=== PATIENT | female | born 1955 | race Caucasian/White ===

== ENCOUNTER 2019-12-06 13:31 | Inpatient (IN) | payer MEDICARE, OTHER ==
[~2019-12-06] VITALS: Ht 165.1 cm; Wt 88.6 kg
[~2019-12-06 13:31] MED LIST: COMBIVENT14.7 GM INH; LOSARTAN POTAS100 MG PO; NORCO 10-325 T1 EACH PO; VALIUM5 MG
[2019-12-06] MEDS ORDERED: METHYLPREDNISOLONE SOD SUCC 125 MG/2ML VIAL IV STA (14:14)
[2019-12-06] MEDS ORDERED: SODIUM CHLORIDE 0.9% 1000ML 1,000 ML IV STA (14:14)
[2019-12-06] MEDS ORDERED: CEFTRIAXONE SOD 1 GM/NS 50 ML 50 ML IV ONE (14:15)
[2019-12-06] MEDS ORDERED: AZITHROMYCIN 500MG/NS 250 ML 250 ML IV ONE (14:15)
[2019-12-06] MEDS ORDERED: ALBUTEROL SULFATE HFA 8GM INHALATION AEROSOL INH PRN (14:15)
--- NOTE | 2019-12-06 14:35 | NUR ---
NOTIFIED RESP TECH OF [facility].
[2019-12-06 15:01] LABS: BASOPHILS % 0.4 % (0.0-1.0); EOSINOPHILS # (AUTO) 0.1 (0.0-0.4); EOSINOPHILS % 0.7 % (0.0-6.0); HEMATOCRIT 39.1 % (34.2-44.1); HEMOGLOBIN 10.6 g/dL (12.0-16.0); LYMPHOCYTES # (AUTO) 0.9 (1.0-3.2); MEAN CORPUSCULAR HGB CONC 27.1 g/dL (31-35); MEAN CORPUSCULAR VOLUME 103.2 fL (81-99); MONOCYTES # (AUTO) 0.4 (0.2-0.8); MONOCYTES % 4.7 % (4.4-11.3); NEUTROPHILS # (AUTO) 6.8 (2.1-6.9); NEUTROPHILS % 81.6 % (38.7-80.0); PLATELET COUNT 104 x10e3/uL (140-360); RED BLOOD COUNT 3.79 x10e6/uL (3.6-5.1); RED CELL DISTRIBUTION WIDTH 12.1 % (11.7-14.4)
[2019-12-06 15:10] LABS: INR 0.84
--- NOTE | 2019-12-06 15:10 | NUR ---
PATIENT TO ROOM 9
[2019-12-06 15:11] LABS: PARTIAL THROMBOPLASTIN TIME 31.9 seconds (23.8-35.5)
[2019-12-06 15:17] LABS: ALANINE AMINOTRANSFERASE 19 IU/L (0-55); ALBUMIN 3.4 g/dL (3.5-5.0); ALBUMIN/GLOBULIN RATIO 0.9 (0.8-2.0); ALKALINE PHOSPHATASE 106 IU/L (40-150); BLOOD UREA NITROGEN 16 mg/dL (7-26); BUN/CREATININE RATIO 18 (6-25); CALCIUM 9.4 mg/dL (8.4-10.2); CHLORIDE 92 mmol/L (98-107); CREATINE KINASE 53 IU/L (29-168); CREATININE, SERUM 0.88 mg/dL (0.57-1.11); EST GLOMERULAR FILTRATION RATE > 60 ML/MIN (60-); GLUCOSE 104 mg/dL (74-118); MAGNESIUM 2.1 MG/DL (1.3-2.1); SODIUM 145 mmol/L (136-145)
[2019-12-06 15:25] LABS: B-TYPE NATRIURETIC PEPTIDE2 213.6 pg/mL (0-100); CARBON DIOXIDE 46 mmol/L (22-29)
[2019-12-06] MEDS ORDERED: SUCCINYLCHOLINE CHLORIDE 20 MG/ML 10ML VIAL ONE (15:53)
[2019-12-06] MEDS ORDERED: VECURONIUM BROMIDE FOR INJ 20 MG VIAL ONE (15:53)
[2019-12-06] MEDS ORDERED: ETOMIDATE 2 MG/ML 10 ML INJ IV ONE (15:53)
--- NOTE | 2019-12-06 16:22 | NUR ---
PATIENT ENTUBATED 50% RATE 20 PEEP 5 500 TV
[2019-12-06] MEDS ORDERED: ONDANSETRON HCL INJ 2MG/ML 2ML 2 MG/ML VIAL IV PRN (16:45)
[2019-12-06] MEDS ORDERED: SUCCINYLCHOLINE 200 MG/10 ML SYR IV STA (16:47)
[2019-12-06] MEDS ORDERED: ETOMIDATE 2 MG/ML 10 ML INJ IV STA (16:47)
[2019-12-06] MEDS ORDERED: VECURONIUM BROMIDE FOR INJ 20 MG VIAL IV STA (16:47)
--- NOTE | 2019-12-06 17:06 | Emergency Department Note ---
History of Present Illnes History of Present Illness Chief Complaint: COVID PUI History of Present Illness This is a 64 year old female HERE FOR TROUBLE BREATHING, CLIENT HAS HISTORY OF COPD, CHF AND AFIB. CLIENT O2 SATS ORIGINALLY AT 80%, CURRENTLY 93% ON 5 LPM. CLIENT WORKING PRETTY HARD TO BREATHE. Historian: Patient, Family Member Arrival Mode: Car Radar Tester Required: No Onset (how long ago): day(s) (3) Location: BREATHING Quality: SOB Radiation: non-radiation Severity: severe Onset quality: gradual Timing of current episode: constant Progression: worsening Chronicity: chronic Context: recent illness Relieving factors: none Exacerbating factors: none Treatments prior to arrival: other (ALBUTEROL MDI) Past Medical/Family History Physician Review I have reviewed the patient's past medical and family history. Any updates have been documented here. Past Medical History Recent Fever: No Clinical Suspicion of Infectio: No New/Unexplained Change in Ment: No Past Medical History: Hypertension, COPD, CHF Other Medical History: SLEEP APNEA Other Surgery: LUNG SURGERY Social History Smoking Cessation: Current every day smoker Counseling Performed: Yes Alcohol Use: None Any Illegal Drug Use: No TB Exposure/Symptoms: No Physically hurt or threatened: No Other Last Tetanus: UTD Any Pre-Existing Lines (PICC,: No Is patient up to date on immun: Yes Last Flu: UTD Last Pneumovax: UTD Review of Systems Review of Systems Constitutional: fever EENTM: no symptoms Cardiovascular: no symptoms Respiratory: dyspnea, dyspnea on exertion; cough Gastrointestinal: no symptoms Genitourinary: no symptoms Musculoskeletal: no symptoms Neurological: other (DAUGHTER REPORTS RECENT CONFUSION) Psychological: no symptoms Endocrine: no symptoms Hematological/Lymphatic: no symptoms Review of other systems All other systems reviewed and negative. Physical Exam Related Data Allergies: Coded Allergies: morphine (Verified Allergy, 03/17/12) Triage Vital Signs Vital Signs Date Time Temp Pulse Resp B/P (MAP) Pulse Ox O2 Delivery O2 Flow Rate FiO2 12/06/19 14:10 98.4 74 24 138/81 90 12/06/19 16:20 3.0 Vital signs reviewed: Yes Physical Exam CONSTITUTIONAL Constitutional: obese, distressed HENT HENT: normocephalic, atraumatic, oropharynx clear/moist, nose normal HENT L/R: left ext ear normal, right ext ear normal EYES Eyes: PERRL, conjunctivae normal NECK Neck: ROM normal PULMONARY Pulmonary: respiratory distress (TACHYPNEIC, SHALLOW RESPIRATIONS), other (DECREASED BS THROUGHOUT) CARDIOVASCULAR Cardiovascular: regular rhythm, heart sounds normal, capillary refill normal, normal rate GASTROINTESTINAL Abdominal: soft, nontender, bowel sounds normal GENITOURINARY Genitourinary: exam deferred SKIN Skin: warm, dry MUSCULOSKELETAL Musculoskeletal: ROM normal NEUROLOGICAL Neurological: other (SLOW TO ANSWER QUESTIONS) PSYCHOLOGICAL Psychological: mood/affect normal, judgement normal Results Laboratory Result Diagram: 12/06/19 1433 12/06/19 1433 Laboratory Laboratory Tests Test 12/06/19 15:12 12/06/19 14:33 White Blood Count 8.27 x10e3/uL (4.8-10.8) Red Blood Count 3.79 x10e6/uL (3.6-5.1) Hemoglobin 10.6 g/dL (12.0-16.0) Hematocrit 39.1 % (34.2-44.1) Mean Corpuscular Volume 103.2 fL (81-99) Mean Corpuscular Hemoglobin 28.0 pg (28-32) Mean Corpuscular Hemoglobin Concent 27.1 g/dL (31-35) Red Cell Distribution Width 12.1 % (11.7-14.4) Platelet Count 104 x10e3/uL (140-360) Neutrophils (%) (Auto) 81.6 % (38.7-80.0) Lymphocytes (%) (Auto) 11.0 % (18.0-39.1) Monocytes (%) (Auto) 4.7 % (4.4-11.3) Eosinophils (%) (Auto) 0.7 % (0.0-6.0) Basophils (%) (Auto) 0.4 % (0.0-1.0) Neutrophils # (Auto) 6.8 (2.1-6.9) Lymphocytes # (Auto) 0.9 (1.0-3.2) Monocytes # (Auto) 0.4 (0.2-0.8) Eosinophils # (Auto) 0.1 (0.0-0.4) Basophils # (Auto) 0.0 (0.0-0.1) Absolute Immature Granulocyte (auto 0.13 x10e3/uL (0-0.1) Prothrombin Time 12.0 seconds (11.9-14.5) Prothromb Time International Ratio 0.84 Activated Partial Thromboplast Time 31.9 seconds (23.8-35.5) Sodium Level 145 mmol/L (136-145) Potassium Level 5.0 mmol/L (3.5-5.1) Chloride Level 92 mmol/L (98-107) Carbon Dioxide Level 46 mmol/L (22-29) Anion Gap 12.0 mmol/L (8-16) Blood Urea Nitrogen 16 mg/dL (7-26) Creatinine 0.88 mg/dL (0.57-1.11) Estimat Glomerular Filtration Rate > 60 ML/MIN (60-) BUN/Creatinine Ratio 18 (6-25) Glucose Level 104 mg/dL (74-118) Lactic Acid Level 0.6 mmol/L (0.5-2.0) Calcium Level 9.4 mg/dL (8.4-10.2) Magnesium Level 2.1 MG/DL (1.3-2.1) Total Bilirubin 0.5 mg/dL (0.2-1.2) Aspartate Amino Transf (AST/SGOT) 18 IU/L (5-34) Alanine Aminotransferase (ALT/SGPT) 19 IU/L (0-55) Alkaline Phosphatase 106 IU/L (40-150) Creatine Kinase 53 IU/L (29-168) Creatine Kinase MB 3.30 ng/mL (0-5.0) Troponin I 0.011 ng/mL (0-0.300) B-Type Natriuretic Peptide 213.6 pg/mL (0-100) Total Protein 7.4 g/dL (6.5-8.1) Albumin 3.4 g/dL (3.5-5.0) Globulin 4.0 g/dL (2.3-3.5) Albumin/Globulin Ratio 0.9 (0.8-2.0) Lab results reviewed: Yes Procedures 12 Lead ECG Interpretation Date: Dec 06, 2019 Time: 15:07 Prior COLORS CUSTODIAN tracings: reviewed Rhythm: sinus rhythm Rate: normal (75) Conduction: incomplete RBBB ST segments normal: Yes T wave depression: aVR, V1 T waves flattening: III, aVF, V3 Clinical Impression: non-specific ECG ABG Interpretation ABG Results: ABG 1 Interpretation: respiratory acidosis Additional comments CO2 >130, WILL INTUBATE Intubation Time out performed: Yes Sedative: Etomidate Paralytic: Succinylcholine Laryngoscope: Rosales (4) Endotracheal tube size: 7.5 ET tube uncuffed: Yes Tube secured depth (cm): 24 Tube secured location: lips Tube placement confirmation: visualize tube passing cords, equal breath sounds bilaterally, no breath sounds over epigastrium, capnometry Patient tolerated procedure: well Complications: none Critical Care Time Critical care time exclusive o: separately billable procedures Critcal care necessary due to: respiratory failure Critcal care time spent by me: discussion w consultants, discussion w primary provider, evaluation patient response to tx, order/review laboratory studies, order/review radiographic studies, pulse oximetry, re-evaluation of patient condition Assessment & Plan Reassessment Reassessment PT WITH ACUTE HYPERCARBIC RESP FAILURE - SEE INTUBATION NOTE Assessment & Plan Final Impression: (1) ACUTE RESPIRATORY FAILURE WITH HYPERCAPNIA (2) CHRONIC OBSTRUCTIVE PULMONARY DISEASE W (ACUTE) EXACERBATION (3) OTHER EMPHYSEMA Assessment & Plan ADMIT ICU - SPOKE WITH DR JAMES AND DR Aleja MCMAHON Depart Disposition: ADMITTED Last Vital Signs Date Time Temp Pulse Resp B/P (MAP) Pulse Ox O2 Delivery O2 Flow Rate FiO2 12/06/19 16:45 65 20 175/80 100 12/06/19 16:20 18.0 12/06/19 14:10 98.4 Home Meds Reported Medications Hydrocodone Bit/Acetaminophen (NORCO 10-325 TABLET) 1 Each Tablet 07/22/14 Diazepam (VALIUM) 5 Mg Tablet 07/22/14 Losartan Potassium (LOSARTAN POTASSIUM) 100 Mg Tablet, 100 MG PO DAILY, TAB 07/22/14 Albuterol/Ipratropium (Combivent) 14.7 Gm Aero, 14.7 GM INH PRN 12 Medications in the ED Methylprednisolone Sodium Succinate 125 mg ONCE STAT IV Last administered on 12/06/19at 15:56; Admin Dose 125 MG; Start 12/06/19 at 14:14; Stop 12/06/19 at 14:17; Status DC Sodium Chloride 1,000 ml @ 0 mls/hr Q0M STAT IV Last administered on 12/06/19at 15:56; Admin Dose 1,000 MLS/HR; Start 12/06/19 at 14:14; Stop 12/06/19 at 14:17; Status DC Ceftriaxone Sodium 50 ml @ 100 mls/hr ONCE ONCE IV Last administered on 12/06/19at 15:56; Admin Dose 100 MLS/HR; Start 12/06/19 at 14:15; Stop 12/06/19 at 14:44; Status DC Azithromycin 250 ml @ 200 mls/hr NOW ONCE IV Last administered on 12/06/19at 16:27; Admin Dose 200 MLS/HR; Start 12/06/19 at 14:15; Stop 12/06/19 at 15:29; Status DC Albuterol 2 PUFFS RQ4H PRN INH SHORTNESS OF BREATH; Start 12/06/19 at 14:15; Stop 01/05/20 at 14:14 Ondansetron HCl 4 mg Q4H PRN IV NAUSEA AND VOMITING; Start 12/06/19 at 16:45; Stop 01/05/20 at 16:44 Etomidate 20 mg NOW STAT IV Last administered on 12/06/19at 16:17; Admin Dose 20 MG; Start 12/06/19 at 16:47; Stop 12/06/19 at 16:55; Status DC Succinylcholine Chloride 100 mg NOW STAT IV Last administered on 12/06/19at 16:17; Admin Dose 100 MG; Start 12/06/19 at 16:47; Stop 12/06/19 at 16:55; Status DC Vecuronium Titus 10 mg NOW STAT IV Last administered on 12/06/19at 16:26; Admin Dose 10 MG; Start 12/06/19 at 16:47; Stop 12/06/19 at 16:55; Status DC JAIME GREEN MD Dec 06, 2019 17:06
[2019-12-06] MEDS ORDERED: PROPOFOL IV EMULSION 10 MG/ML 20 ML VIAL IV ONE (17:30)
[2019-12-06] MEDS ORDERED: PROPOFOL IV EMULSION 50 ML IV ONE ×3 (17:30→21:58)
--- NOTE | 2019-12-06 17:30 | NUR ---
OLIVARES CATHETER PLACED PER Bhavna PLASENCIA R.N.
--- NOTE | 2019-12-06 17:44 | Diagnostic Imaging Report ---
EXAMINATION: CHEST SINGLE (PORTABLE) INDICATION: Shortness of breath. Cough. COMPARISON: July 24, 2014. FINDINGS: TUBES and LINES: The tracheal tube with distal tip approximately 3.5 cm proximal to the russ. LUNGS: Lungs are hyperinflated fragility upper lobes. Bilateral upper lobe pleural parenchymal scarring. Mild perihilar, peribronchial thickening and perihilar streaky densities may represent early interstitial edema, however, can also be seen with viral infection versus reactive airway disease. Mild prominence of the pulmonary vasculature with redistribution. There is no evidence of pneumonia or pulmonary edema. PLEURA: Bilateral small pleural effusions, right greater than left. No pneumothorax. HEART AND MEDIASTINUM: Cardiac size is moderately enlarged. There are atherosclerotic calcifications within the aorta. BONES AND SOFT TISSUES: No acute osseous lesion. Soft tissues are unremarkable. UPPER ABDOMEN: No free air under the diaphragm. IMPRESSION: 1. Findings suggestive of pulmonary venous congestion and early interstitial edema. 2. Bilateral small pleural effusions, right greater than left. 3. ET tube in adequate position. 4. Probable COPD. Signed by: Dr. Claritza Huerta M.D. on 12/06/2019 5:41 PM
[2019-12-06] MEDS ORDERED: HYDRALAZINE HCL 20 MG/ML VIAL IV PRN (17:45)
[2019-12-06] MEDS ORDERED: FUROSEMIDE INJ 10 MG/ML 2 ML VIAL IV ONE (17:45)
[2019-12-06] MEDS: PROPOFOL IV EMULSION 10MG/ML 100 ML IV SCH ×3 (18:06→21:56)
--- NOTE | 2019-12-06 18:33 | NUR ---
FAMILY CALLED TO OBTAIN CONSENT FOR PICC LINE, LEFT MESSAGE
--- NOTE | 2019-12-06 19:09 | NUR ---
RECEVIED REPORT FROM LEONARDA BROWER; ASSUMED CARE AT THIS TIME; BEDSIDE HANDOFF COMPLETED; NOTED PATIENT IN NAD, INTUBATED WITH E/U RESP EFFORT; PT ATTACHED TO PIE MAKER MACHINE, V/S/S; PT HAS 7.5 ETT 24@LIP, NG TUBE PRESENT TO RT NARE ATTACHED TO LIWS; OLIVARES IN PLACE APPEARS PATENT, DRAINING URINE AT THIS TIME; WILL CONTINUE TO MONITOR PT.
[2019-12-06 19:27] LABS: BILIRUBIN,URINE SMALL (NEGATIVE); CLARITY,URINE SL CLOUDY (CLEAR); COLOR,URINE YELLOW (YELLOW); KETONES,URINE TRACE (NEGATIVE); LEUKOCYTE ESTERASE ,URINE NEGATIVE (NEGATIVE); NITRITE,URINE NEGATIVE (NEGATIVE); PROTEIN,URINE DIPSTICK 2+ (NEGATIVE); URINE UROBILINOGEN 0.2 mg/dL (0.2 - 1)
--- OUTSIDE RECORDS SUMMARY | 2019-12-06 19:28 | XMS REPORT | Clinical Summary ---
Author Author [facility] Organization [facility] Address Unknown Phone Unavailable Care Team Providers Care Quarter Supervisor Name Role Phone Asked, No Pcp PCP Unavailable Allergies Not on File Medications Not on file Active Problems Not on file Social History Date Tobacco Use Types Packs/Day Years Used Never Assessed Sex Assigned at Date Recorded Not on file Industry Job Start Date Occupation Not on file Not on file Not on file Travel End Travel History Travel Start No recent travel history available. 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
--- OUTSIDE RECORDS SUMMARY | 2019-12-06 19:28 | XMS REPORT | Continuity of Care Document ---
Author Author [facility] t Organization [facility] Address [address] [place] [address] Phone Unavailable Care Team Providers Care Security Operations Analyst Name Role Phone Asked, Pcp No PCP Unavailable Shirin MCMAHON Attphys Unavailable Shirin MCMAHON Admphys Unavailable Problems This patient has no known problems. Allergies, Adverse Reactions, Alerts This patient has no known allergies or adverse reactions. Social History Social Habit Start Date Stop Date Quantity Comments Source Sex Assigned At Yusef Parra Medications This patient has no known medications. Procedures This patient has no known procedures. Plan of Care Planned Activity Planned Date Details Comments Source Future Scheduled Test 2020-02-03 00:00:00 INFLUENZA VACCINE [code = INFLUENZA VACCINE] [facility] Future Scheduled Test 2018 00:00:00 65+ PNEUMOCOCCAL V ACCINE (1 of 2 - PCV13) [code = 65+ PNEUMOCOCCAL VACCINE (1 of 2 - PCV13)] [facility] Future Scheduled Test 2003 00:00:00 BREAST CANCER SCRE ENING [code = BREAST CANCER SCREENING] [facility] Future Scheduled Test 2003 00:00:00 COLONOSCOPY SCREEN ING [code = COLONOSCOPY SCREENING] [facility] Future Scheduled Test 2003 00:00:00 SHINGLES VACCINES (#1) [code = SHINGLES VACCINES (#1)] [facility] Results Test Description Test Time Test Comments Results Result Comments Source CHEST SINGLE (PORTABLE) 2019-12-06 17:37:00 [facility] [address] [place], [place] [address] Patient Name: ARELY SIEGEL MR #: [id number] : 1955 Age/Sex: 64/F Req #: [id number] Adm Physician: Ordered by: JAIME GREEN MD Report #: [id number] Location: ER Room/Bed: Procedure: [id number] DX/CHEST SINGLE (PORTABLE) Exam Date: 12/06/19 Exam Time: 1700 REPORT STATUS: Signed EXAMINATION: CHEST SINGLE (PORTABLE) INDICATION: Shortness of breath. Cough. COMPARISON: July 24, 2014. FINDINGS: TUBES and LINES: The tracheal tube with distal tip approximately 3.5 cm proximal to the russ. LUNGS: Lungs are hyperinflated fragility upper lobes. Bilateral upper lobe pleural parenchymal scarring. Mild perihilar, peribronchial thickening and perihilar streaky densities may represent early interstitial edema, however, can also be seen with viral infection versus reactive airway disease. Mild prominence of the pulmonary vasculature with redistribution. There is no evidence of pneumonia or pulmonary edema. PLEURA: Bilateral small pleural effusions, right greater than left. No pneumothorax. HEART AND MEDIASTINUM: Cardiac size is moderately enlarged. There are atherosclerotic calcifications within the aorta. BONES AND SOFT TISSUES: No acute osseous lesion. Soft tissues are unremarkable. UPPER ABDOMEN: No free air under the diaphragm. IMPRESSION: 1. Findings suggestive of pulmonary venous congestion and early interstitial edema. 2. Bilateral small pleural effusions, right greater than left. 3. ET tube in adequate position. 4. Probable COPD. Signed by: Dr. Claritza Blankenship M.D. on 12/06/2019 5:41 PM Dictated By: CAROLYN BLANKENSHIP MD, MD 40 Transcribed By: MALLORY on 12/06/191740 COPY TO: JAIME GREEN MD
--- NOTE | 2019-12-06 19:38 | NUR ---
RECEIVED ORDERS FROM DR. MCMAHON FOR REPEAT ABG FOR 2200 TONIGHT, WILL INFORM RT AND WELDER PRODUCTION LINE GAS WITH CARE HANDOFF.
[2019-12-06 19:39] LABS: BACTERIA,URINE MODERATE /HPF; EPITHELIAL CELLS,URINE FEW /LPF; RBC,URINE 0-5 /HPF (0-5); WBC,URINE (MAN) 0-5 /HPF (0-5)
[2019-12-06] MEDS: ENOXAPARIN SOD INJ 40 MG/0.4 ML SYR SC SCH (20:00)
[2019-12-06] MEDS ORDERED: METHYLPREDNISOLONE SOD SUCC 125 MG/2ML VIAL IV SCH (21:00)
--- NOTE | 2019-12-06 21:21 | NUR ---
TELEPHONE CONSENT OBTAINED FROM DAUGHTER, CHRISTELLE MCNEIL FOR PICC LINE INSERTION; DAUGHTER AWARE OF RISKS/BENEFITS AND POC AT THIS TIME, VERBALIZES MOTHER HAS HAD PICC IN THE PAST; INFORMED OF PRECAUTIONS IN PLACE FOR PATIENT AND CURRENT PT STATUS, ALL QUESTIONS ANSWERED AT THIS TIME, ADVISED TO CALL NEEDED FOR QUESTIONS/CONCERNS; INFORMED RADIOLOGY AT THIS TIME.
[2019-12-06] MEDS: ALBUTEROL/IPRATROPIUM 3 ML NEB NEB SCH (23:15)
[2019-12-07] VITALS (24 sets, daily range): BP systolic 99–153; BP diastolic 46–125
[2019-12-07] MEDS ORDERED: PROPOFOL IV EMULSION 50 ML IV ONE (00:06)
--- NOTE | 2019-12-07 00:45 | NUR ---
PICC RN AT BEDSIDE, CONSENT AND LABS REVIEWED, TIME OUT COMPLETED.
--- NOTE | 2019-12-07 01:02 | Consultation ---
DATE OF CONSULTATION: Pulmonary Critical Care Consultation HISTORY OF PRESENT ILLNESS: The patient is a 64-year-old woman. She has a history of COPD as well as diastolic heart failure and hypertension. She required hospitalization at [facility] in 2015 with acute respiratory failure. She required brief intubation. She was evaluated by Cardiology. Since that time, she has been at home. She came to the emergency department with worsening dyspnea. There was no reported cough. She did not have chest pain. She did not have fevers. In the emergency department, her respiratory status worsened and she required intubation. PAST MEDICAL HISTORY: 1. Hypertension. 2. COPD. 3. Diastolic heart failure. PAST SURGICAL HISTORY: Status post cholecystectomy. SOCIAL HISTORY: The patient is a former smoker. She is not an active drinker. FAMILY HISTORY: Family history is noncontributory. ALLERGIES: THE PATIENT IS ALLERGIC TO MORPHINE. REVIEW OF SYSTEMS: There is no fever. She has no headache or neck pain. She did not complain of chest pain. She did have difficulty breathing. She had no congestion. She had no abdominal pain. She had no nausea or vomiting. She had no leg edema. PHYSICAL EXAMINATION: VITAL SIGNS: The blood pressure is 175/70, saturation is now 100% on a PRVC at a rate of 20 with 50% and 450. Her pulse is 65. HEENT: Shows no facial swelling or erythema. There is an oral endotracheal tube. CARDIAC: Reveals regular rate and rhythm with normal S1 and S2. LUNGS: Auscultation of lungs reveals prolonged expiratory phase bilaterally. There is no wheezing. ABDOMEN: Soft, nontender. There is no rebound or guarding. EXTREMITIES: Show no leg edema or calf tenderness. There is no cyanosis or clubbing. SKIN: Shows no rashes. NEUROLOGIC: Shows no focal abnormalities. LABORATORY DATA: The BUN to creatinine ratio is 16 to 0.88 and the carbon dioxide is 46. Other electrolytes are within normal limits. The white blood cell count is 8 and hemoglobin is 10.6. The platelet count is 104. IMPRESSION: 1. Ggudc-dr-pdjfyjc respiratory failure. 2. Chronic obstructive pulmonary disease with acute exacerbation. 3. Kwwfw-co-qwjhkwg diastolic heart failure. 4. Anemia. 5. Hypertension. PLAN: 1. Solu-Medrol and bronchodilators. 2. Antibiotics. 3. Echocardiogram. 4. Control blood pressure. 5. Low-dose Lasix. 6. Continue to monitor blood counts. 7. Lovenox. MD JUAN RAMON Amaya/PAM /[id number]
--- NOTE | 2019-12-07 01:37 | Diagnostic Imaging Report ---
EXAMINATION: CHEST X-RAY LINE PLACEMENT COMPARISON: Chest x-ray 12/06/2019 INDICATION: ^Y ^PICC PLACEMENT ^Y DISCUSSION: Frontal view of the chest obtained at 0045 hours. The inferior aspect of the left chest was included on the image. HEART AND MEDIASTINUM: The heart is top normal in size to mildly enlarged LINES: Endotracheal tube terminates 3 to 4 cm above the russ. Right PICC line terminates in the SVC without pneumothorax. Enteric tube extends past the diaphragm LUNGS/PLEURA: Diffuse hyperinflation suggestive of COPD. Stable chain sutures in the right upper lobe. Trace right basilar atelectasis. No interstitial edema. Central pulmonary vasculature is mildly prominent but stable. BONES AND SOFT TISSUES: No focal osseous lesion. The soft tissues are normal. IMPRESSION: 1. Right PICC line terminates in the SVC without pneumothorax. Other support devices as described above. 2. Stable cardiomegaly and central pulmonary venous congestion. 3. Trace right basilar atelectasis. Pulmonary hyperinflation consistent with COPD. Signed by: Dr. Hina Madrid MD on 12/07/2019 1:34 AM
[2019-12-07] MEDS ORDERED: PROPOFOL IV EMULSION 100 ML IV ONE ×2 (02:15→07:46)
--- NOTE | 2019-12-07 02:24 | Diagnostic Imaging Report ---
EXAMINATION: CHEST SINGLE (PORTABLE) COMPARISON: Chest x-ray 0045 hours INDICATION: Respiratory failure, intubation ^RESP FAILURE ^20191207 ^0025 DISCUSSION: Frontal view of the chest obtained at 0119 hours. The inferior aspect of the left chest is not visualized. HEART AND MEDIASTINUM: The heart is top normal in size to mildly enlarged, stable. LINES: Right PICC line terminates in the SVC. Enteric tube extends past the diaphragm. Endotracheal tube terminates approximate 5 cm above the russ. LUNGS/PLEURA: Diffuse hyperinflation suggestive of COPD. Chain sutures in the right upper lobe are stable. Increasing airspace opacities in the base of the right lung suggestive of atelectasis. No large effusions. No pneumothorax. BONES AND SOFT TISSUES: No focal osseous lesion. The soft tissues are normal. IMPRESSION: 1. Support devices as described above. 2. Increasing right basilar atelectasis. Stable hyperinflation suggestive of COPD. Signed by: Dr. Hina Madrid MD on 12/07/2019 2:21 AM
[2019-12-07] MEDS: PROPOFOL IV EMULSION 10MG/ML 100 ML IV SCH (02:59)
[2019-12-07] MEDS ORDERED: METHYLPREDNISOLONE SOD SUCC 125 MG/2ML VIAL IV SCH (03:00)
[2019-12-07 06:14] LABS: BASOPHILS % 0.1 % (0.0-1.0); HEMATOCRIT 33.4 % (34.2-44.1); HEMOGLOBIN 9.4 g/dL (12.0-16.0); LYMPHOCYTES # (AUTO) 0.6 (1.0-3.2); LYMPHOCYTES % 6.2 % (18.0-39.1); MEAN CORPUSCULAR HEMOGLOBIN 27.8 pg (28-32); MEAN CORPUSCULAR HGB CONC 28.1 g/dL (31-35); MEAN CORPUSCULAR VOLUME 98.8 fL (81-99); MONOCYTES # (AUTO) 0.3 (0.2-0.8); MONOCYTES % 3.7 % (4.4-11.3); NEUTROPHILS # (AUTO) 8.2 (2.1-6.9); NEUTROPHILS % 89.6 % (38.7-80.0); RED BLOOD COUNT 3.38 x10e6/uL (3.6-5.1); RED CELL DISTRIBUTION WIDTH 12.1 % (11.7-14.4)
[2019-12-07 06:23] LABS: PLATELET COUNT 95 x10e3/uL (140-360)
[2019-12-07 06:34] LABS: ALANINE AMINOTRANSFERASE 14 IU/L (0-55); ALBUMIN 2.9 g/dL (3.5-5.0); ALBUMIN/GLOBULIN RATIO 0.8 (0.8-2.0); ALKALINE PHOSPHATASE 86 IU/L (40-150); ANION GAP 18.4 mmol/L (8-16); BLOOD UREA NITROGEN 19 mg/dL (7-26); BUN/CREATININE RATIO 22 (6-25); CARBON DIOXIDE 38 mmol/L (22-29); CHLORIDE 90 mmol/L (98-107); CHOL/HDL RATIO 3.1 (3.0-3.6); CHOLESTEROL 166 MD/DL (0-199); CREATININE, SERUM 0.88 mg/dL (0.57-1.11); EST GLOMERULAR FILTRATION RATE > 60 ML/MIN (60-); GLUCOSE 88 mg/dL (74-118); HDL CHOLESTEROL 54 MG/DL (40-60); LDL CHOLESTEROL 92 MG/DL (60-130); POTASSIUM 4.4 mmol/L (3.5-5.1); SODIUM 142 mmol/L (136-145); TRIGLYCERIDES 100 MG/DL (0-149)
[2019-12-07 06:55] LABS: CREATINE KINASE MB 1.1 ng/mL (0-5.0)
[2019-12-07] MEDS: ALBUTEROL/IPRATROPIUM 3 ML NEB NEB SCH ×3 (07:30→19:15)
[2019-12-07] MEDS: PROPOFOL IV EMULSION 100 ML IV SCH ×5 (08:47→22:00)
[2019-12-07] MEDS: LOSARTAN POTASSIUM 100 MG TAB PO SCH (09:00)
--- NOTE | 2019-12-07 09:18 | Progress Note ---
DATE: SUBJECTIVE: The patient had a PICC line late last night. She remains on propofol for sedation. The patient was switched to pressure control last night because of high airway pressures. Lung volumes were initially very small, but they have improved overnight with treatment. Her pressure above PEEP has been decreased. The patient is not having fevers. PHYSICAL EXAMINATION: VITAL SIGNS: Blood pressure is 115/67 and the saturation is 96%. The pulse is 79. T-max last night was 100.2. The patient is now afebrile. The patient is on a pressure control mode of ventilation. PEEP is set of 5 and pressure above PEEP is 28. The exhaled tidal volumes are 400 to 450 mL. The rate is set at 20 and the patient is breathing 22 to 24. Saturations are 100% on 50%. HEENT: Shows no facial swelling or erythema. There is an oral endotracheal tube in place. LYMPHATIC: Shows no submandibular, cervical, or supraclavicular adenopathy. CARDIAC: Reveals a regular rate and rhythm with normal S1 and S2. There are no murmurs or rubs. LUNGS: Auscultation of lungs reveals a prolonged expiratory phase bilaterally. There is some wheezing. ABDOMEN: Soft and nontender. There is no rebound or guarding. EXTREMITIES: Shows no leg edema or calf tenderness. There is no cyanosis or clubbing. SKIN: Shows no rashes. NEUROLOGIC: Shows the patient to be sedated. She wakes up when the sedation is held. LABORATORY DATA: White blood cell count is 9.15 and hemoglobin is 9.4. The platelet count is 95. BUN to creatinine ratio is 19 to 0.88. The chloride is 90 and the CO2 is 38. The sodium is 142, and the potassium is 4.4. The BUN is 19 and creatinine 0.88. The albumin is 2.9. RADIOGRAPHIC DATA: Shows bibasilar infiltrates. Endotracheal tube is in good position. There is a PICC line in the superior vena cava. IMPRESSION: 1. Dqare-tv-adcqgze respiratory failure. 2. Chronic obstructive pulmonary disease with acute exacerbation. 3. Heobx-kg-efgjwmx diastolic heart failure. 4. Thrombocytopenia. 5. Hypertension. 6. Anemia. PLAN: 1. The patient will continue on PRVC. 2. Continue Solu-Medrol and aggressive bronchodilators. 3. Continue IV antibiotics. 4. Await echocardiogram and completion of Cardiology evaluation. 5. Possible spontaneous breathing trial. 6. Continue to monitor platelet count and hemoglobin. 7. Case discussed with nursing, Respiratory, and Internal Medicine. Case also discussed with family. Greater than 35 minutes in direct critical care time. MD JUAN RAMON Amaya/PAM /[id number]
--- NOTE | 2019-12-07 09:59 | Diagnostic Imaging Report ---
EXAM: CHEST SINGLE (PORTABLE), ABDOMEN-1VIEW (KUB) DATE: 12/07/2019 9:15 AM INDICATION: Endotracheal tube, nasogastric tube placement COMPARISON: 12/07/2019 at 0119 FINDINGS: Endotracheal tube identified terminating approximately 3.2 cm above the russ. Nasogastric tube identified coursing below the diaphragm. However, the proximal sidehole appears at the level of the GE junction and advancement by several centimeters is recommended. Right-sided PICC line identified in stable position. There are bibasilar opacities, left greater than right which may reflect atelectasis. There is no evidence for new large focal consolidation or pneumothorax. No significant pleural effusion is present. The cardiomediastinal silhouette is stable in appearance. There is gaseous distention of the stomach. No free air is appreciated on the diaphragm. No acute osseous abnormality is identified. IMPRESSION: Proximal sidehole of the nasogastric tube noted at the level of the GE junction, recommend advancing by several centimeters. Remaining support devices as described above. Bibasilar opacities suggestive of atelectasis. Otherwise, no significant interval change from the prior examination from earlier 12/07/2019. Signed by: Dr. Pedrito Moses MD on 12/07/2019 9:55 AM
[2019-12-07 11:15] LABS: HYPOCHROMASIA SLIGHT; PLATELET ESTIMATE SLIGHTLY DECREASED; PLATELET MORPHOLOGY COMMENT NORMAL
[2019-12-07 11:16] LABS: RBC MORPHOLOGY COMMENT NORMAL
[2019-12-07] MEDS ORDERED: FUROSEMIDE INJ 10 MG/ML 4 ML VIAL IV ONE (12:00)
--- NOTE | 2019-12-07 13:04 | Consultation ---
DATE OF CONSULTATION: 12/07/2019 Cardiology Consultation CONSULTING PHYSICIAN: Pascual Vasques MD, Interventional Cardiology. REASON FOR CONSULTATION: Shortness of breath. HISTORY OF PRESENT ILLNESS: A 64-year-old woman with a history of hypertension, chronic diastolic heart failure, COPD, presents with hypercarbic respiratory failure requiring ventilatory support and endotracheal intubation. She is admitted to ICU for further care. Currently, sedated. REVIEW OF SYSTEMS: A 12-system review unable to assess given the patient is sedated. PAST MEDICAL HISTORY: Per chart review, hypertension, COPD, chronic diastolic heart failure. SOCIAL HISTORY: Unable to assess. FAMILY HISTORY: Unable to assess. PHYSICAL EXAMINATION: VITAL SIGNS: Temperature of 100.9, heart rate 70, blood pressure 107/52, respiratory rate 20, and O2 saturation 95%. BMI 31.9. GENERAL: Intubated and sedated. CHEST: Decreased breath sounds in bilateral bases. CARDIOVASCULAR: Regular rate and rhythm. Normal S1, S2. No S3. No S4. No murmurs, no rubs. ABDOMEN: Soft. Bowel sounds positive. EXTREMITIES: Warm. No edema. CARDIOVASCULAR MEDICATIONS: Reviewed. Hydralazine 10 mg q.4 hours, Lovenox 40 mg subcu daily, methylprednisolone 60 mg q.12 hours. STUDIES: Reviewed. Sodium 142, potassium 4.4, chloride 90, bicarbonate 38, BUN 19, creatinine 0.8, glucose 88. White blood cells 9.1, hemoglobin 9.4, and platelets 95. BNP elevated at 213. Troponin I negative x3. AST 14, ALT 14, alkaline phosphatase 86. TELEMETRY: Reviewed in sinus rhythm with PACs. EKG reviewed. ASSESSMENT AND PLAN: 1. A 64-year-old woman with acute respiratory failure. 2. Chronic obstructive pulmonary disease exacerbation. 3. Hypertension. 4. Cpxlp-jd-zkhkxwj diastolic heart failure. 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 The patient has been tested for COVID and is negative. Echocardiogram has been ordered and done, however, not available. The images currently are available for review. We will discuss with the plant maintenance technician for downloading and review once available. Thank you for the opportunity to participate in the care of this patient. We will follow with you. MD FRANKLIN Esparza/PAM /[id number]
[2019-12-07] MEDS ORDERED: ONDANSETRON HCL INJ 2MG/ML 2ML 2 MG/ML VIAL IV PRN (13:15)
[2019-12-07] MEDS ORDERED: METOPROLOL TARTRATE INJ 1 MG/ML VIAL IV PRN (13:15)
[2019-12-07] MEDS ORDERED: ACETAMINOPHEN 325 MG TAB NG PRN (13:15)
--- NOTE | 2019-12-07 13:38 | Diagnostic Imaging Report ---
EXAM: ABDOMEN-1VIEW (KUB) DATE: 12/07/2019 1:12 PM INDICATION: The mesenteric tube COMPARISON: 12/07/2019 at 0915 FINDINGS: Nasogastric tube has been advanced with distal tip and proximal sidehole now coursing below the diaphragm and terminating within the stomach. Additionally, there is been significant reduction of gaseous distention of the stomach. The remainder the examination is unchanged from the recent prior examination. IMPRESSION: Interval decompression of the stomach with nasogastric tube now identified in appropriate position. Signed by: Dr. Pedrito Moses MD on 12/07/2019 1:34 PM
[2019-12-07] MEDS: METHYLPREDNISOLONE SOD SUCC 125 MG/2ML VIAL IV SCH (14:26)
[2019-12-07] MEDS: FAMOTIDINE 20 MG/2 ML VIAL IV SCH (16:16)
[2019-12-07] MEDS: ENOXAPARIN SOD INJ 40 MG/0.4 ML SYR SC SCH (16:16)
--- NOTE | 2019-12-07 18:04 | NUR ---
Nutrition Intervention Note RD Recommendation(s) for Physician: -Rec changing TF to Vital HP @30ml/hr, providing 720kcal, 63g protein, 601ml water -Rec adding 1pkt Beneprotein TID (18g protein) via NGT to meet protein needs -Water flushes per MD Plan of Care: RD following, monitoring for tolerance and adequacy, TF rec Nutrition reason for involvement: Nutrition risk trigger MST RD Assessment 12/06 64yo F, who was admitted for hypercarbic respiratory failure requiring ventilator support and endotracheal intubation. She is currently sedated with 2 Propofol infusing at 11.5 ml/hr at the same time (607kcal). TF has been resumed with Glucerna at 15ml/hr via NGT, with goal rate at 30ml/hr (1080kcal, 59g protein, 546ml water). Will continue to follow. Principal Problems/Diagnoses: Chronic obstructive pulmonary disease exacerbation PMH: 1. Hypertension. 2. COPD. 3. Diastolic heart failure. I/O: +80ml/ -60ml GI: abdomen soft, large, round, no BM since admission Skin: intact Labs: (12/06) reviewed Meds: Solu-medrol, lovenox, propofol Ht: 65in Wt: 192.31lb BMI: 32.0kg/m2 IBW: 125lb +/- 10% Malnutrition Evaluation (12/06) Unable to assess due to critical status. Nutrition Prescription (Diet Order): Glucerna @30ml/hr Estimated Nutritional Needs: Calories: 1254 1425kcal(22-25kcal/kg/d) Weight used: IBW Protein: 86 114g(1.5-2g/kg/d) Weight used: IBW Diet Adequacy: Meeting calorie needs, Not meeting protein needs Tolerance: Tolerance pending Diet Education Needs Assessment: Diet education not indicated, patient on temporary/transition diet. Nutrition Care Level: Moderate Nutrition Diagnosis: Inadequate oral intake related to current medical status as evidenced by pt requiring EN as main source of nutrition. Goal: Patient will meet 75-100% of estimated needs by follow up Progress: Progressing Interventions: Composition, Rate, Route Monitoring/Evaluation: Total energy intake, Total protein intake, Formula/Solution, Weight change Signed: Livia Parra, MS, RD, LD
[2019-12-07] MEDS: CEFTRIAXONE SOD 1 GM/NS 50 ML 50 ML IV SCH (21:58)
[2019-12-07] MEDS: AZITHROMYCIN 500MG/NS 250 ML 250 ML IV SCH (21:59)
[2019-12-08] VITALS (27 sets, daily range): BP systolic 114–168; BP diastolic 53–118
[2019-12-08] MEDS: PROPOFOL IV EMULSION 100 ML IV SCH ×3 (02:20→06:48)
[2019-12-08] MEDS: ALBUTEROL/IPRATROPIUM 3 ML NEB NEB SCH ×4 (02:55→19:20)
[2019-12-08] MEDS: METHYLPREDNISOLONE SOD SUCC 125 MG/2ML VIAL IV SCH ×2 (03:13→14:43)
[2019-12-08 05:20] LABS: BASOPHILS % 0.1 % (0.0-1.0); EOSINOPHILS % 0.2 % (0.0-6.0); HEMATOCRIT 28.5 % (34.2-44.1); HEMOGLOBIN 9.1 g/dL (12.0-16.0); LYMPHOCYTES # (AUTO) 0.6 (1.0-3.2); LYMPHOCYTES % 6.9 % (18.0-39.1); MEAN CORPUSCULAR HEMOGLOBIN 29.6 pg (28-32); MEAN CORPUSCULAR HGB CONC 31.9 g/dL (31-35); MEAN CORPUSCULAR VOLUME 92.8 fL (81-99); MONOCYTES # (AUTO) 0.4 (0.2-0.8); MONOCYTES % 4.4 % (4.4-11.3); NEUTROPHILS # (AUTO) 8.1 (2.1-6.9); PLATELET COUNT 105 x10e3/uL (140-360); RED BLOOD COUNT 3.07 x10e6/uL (3.6-5.1); RED CELL DISTRIBUTION WIDTH 13.2 % (11.7-14.4)
[2019-12-08 05:53] LABS: ALBUMIN 2.7 g/dL (3.5-5.0); ALBUMIN/GLOBULIN RATIO 0.7 (0.8-2.0); ANION GAP 13.7 mmol/L (8-16); CALCIUM 8.6 mg/dL (8.4-10.2); CREATININE, SERUM 1.17 mg/dL (0.57-1.11); POTASSIUM 3.7 mmol/L (3.5-5.1)
--- NOTE | 2019-12-08 06:03 | Diagnostic Imaging Report ---
EXAMINATION: CHEST SINGLE (PORTABLE) COMPARISON: Chest x-ray 12/07/2019 INDICATION: ^resp failure ^20191208 ^0500 DISCUSSION: Frontal view of the chest obtained at 0535 hours. HEART AND MEDIASTINUM: Stable mild cardiomegaly. LINES: Endotracheal tube terminates 3-4 cm above the russ. Right PICC line terminates in the SVC. Enteric tube extends past the diaphragm LUNGS/PLEURA: The lungs are hyperinflated suggestive of COPD/emphysema. Stable central vascular prominence. Hazy bibasilar airspace opacities are similar. No large effusions or pneumothorax. BONES AND SOFT TISSUES: Stable. IMPRESSION: 1. Support devices as described above. 2. Stable bibasilar haziness, either atelectasis or infiltrate. Signed by: Dr. Hina Madrid MD on 12/08/2019 6:00 AM
--- NOTE | 2019-12-08 08:43 | Progress Note ---
DATE: SUBJECTIVE: The patient received enteral feedings yesterday, but they were held this morning. Her sedation was held and she wakes up. She was placed on CPAP of 5 and pressure support of 8. She is breathing 18 times a minute with tidal volumes of 400-450 mL. PHYSICAL EXAMINATION: VITAL SIGNS: The blood pressure is 141/62 and the pulse is 72, saturation is 95%. She is on pressure support of 8 and CPAP of 5. She is breathing 18 times a minute. Has tidal volumes of 400 mL. She has a temperature of 100.1. HEENT: Shows no facial swelling or erythema. CARDIAC: Reveals regular rate and rhythm with normal S1, S2. LUNGS: Auscultation of lungs reveals a few crackles at the bases. There is no wheezing. ABDOMEN: Soft and nontender. There is no rebound or guarding. EXTREMITIES: Shows no leg edema or calf tenderness. There is no cyanosis or clubbing. SKIN: Shows no rashes. NEUROLOGICAL: Shows no focal abnormalities. The patient is arousable when her sedation is held. LABORATORY DATA: White blood cell count is 9.2 and hemoglobin is 9.1. The platelet count is 105. The BUN to creatinine ratio is 26 to 1.17. The carbon dioxide is 39 and the chloride is 87. The sodium is 136. The albumin is 2.7. IMPRESSION: 1. Acute on chronic respiratory failure. 2. Chronic obstructive pulmonary disease with acute exacerbation. 3. Fever of unclear etiology. 4. Thrombocytopenia. 5. Hypertension. 6. Anemia. 7. Acute on chronic diastolic heart failure. PLAN: 1. Continue spontaneous breathing trial and extubate as tolerated. 2. Continue Solu-Medrol and bronchodilators. 3. Continue current antibiotics. Await culture results. 4. Continue intermittent Lasix as recommended by Cardiology. 5. Continue to monitor blood counts. 6. Case discussed with nursing, Respiratory, Internal Medicine, and family. Greater than 35 minutes in direct critical care time. Mario Escobar MD [facility]/MODL /[id number]
[2019-12-08 09:03] LABS: ABG HCO3 44 mmol/L (22-26); ABG PCO2 83 mmHg (35-45); ABG PH 7.33 (7.35-7.45); ABG PO2 71 mmHg (80-105)
[2019-12-08 09:11] LABS: ABG HCO3 44 mmol/L (22-26); ABG PCO2 70 mmHg (35-45); ABG PH 7.41 (7.35-7.45); ABG PO2 179 mmHg (80-105)
[2019-12-08 09:23] LABS: ABG HCO3 41 mmol/L (22-26); ABG PCO2 44 mmHg (35-45); ABG PH 7.57 (7.35-7.45); ABG PO2 45 mmHg (80-105)
[2019-12-08] MEDS: FAMOTIDINE 20 MG/2 ML VIAL IV SCH ×2 (09:31→16:43)
[2019-12-08] MEDS: LOSARTAN POTASSIUM 100 MG TAB PO SCH (09:32)
[2019-12-08 10:50] LABS: ABG HCO3 46 mmol/L (22-26); ABG PCO2 57 mmHg (35-45); ABG PH 7.51 (7.35-7.45); ABG PO2 50 mmHg (80-105)
[2019-12-08] MEDS: ENOXAPARIN SOD INJ 40 MG/0.4 ML SYR SC SCH (16:43)
--- NOTE | 2019-12-08 17:40 | NUR ---
Rapid weaning trials, sedation held for spontaneous breathing trials. Pt extubated at [address] Aleja Escobar's orders. Speech evaluation done at bedside. Pt refused to work with Physical therapy. Will continue to monitor.
[2019-12-08] MEDS: APIXABAN 5 MG TABLET PO SCH (18:00)
[2019-12-08] MEDS: METOPROLOL SUCCINATE 25 MG TAB XL PO SCH (18:08)
--- NOTE | 2019-12-08 19:46 | Progress Note ---
DATE: 12/08/2019 Cardiology Progress Note SUBJECTIVE: Remains short of breath. No extubated. No other complaints. OBJECTIVE: VITAL SIGNS: Temperature 98.3, heart rate 78, respiratory rate 20, blood pressure 157/80, and O2 saturation 92% on 5 L/minute nasal cannula. GENERAL: In no acute distress. NECK: No JVD. CHEST: Scattered rhonchi. CARDIOVASCULAR: Regular rate and rhythm. Normal S1 and S2. ABDOMEN: Soft. Bowel sounds positive. EXTREMITIES: No edema. CARDIOVASCULAR MEDICATIONS: Reviewed. Lovenox 40 mg subcutaneous daily, losartan 100 mg daily, ceftriaxone and azithromycin antibiotics, metoprolol tartrate 2.5 mg q.6 hours p.r.n. IV, and hydralazine 10 mg q.4 hours p.r.n. STUDIES: White blood cells 9.2, hemoglobin 9.1, and platelets 105. Sodium 136, potassium 3.7, chloride 87, bicarbonate 39, BUN 26, creatinine 1.1, glucose 116, and calcium 8.6. AST 14, ALT 11, and total bilirubin 0.3. BNP 213. Troponin I negative x3. Total protein 6.9 and albumin 2.7. ASSESSMENT AND PLAN: 1. Chronic obstructive pulmonary disease exacerbation, chronic respiratory failure, now status post extubation. 2. Thrombocytopenia. 3. Hypertension. 4. Iooev-vc-rgwjndv diastolic heart failure. 5. Paroxysmal atrial fibrillation. RECOMMEND: Discussed with the patient, she confirms use of Eliquis for unknown paroxysmal atrial fibrillation. We will resume anticoagulation. Continue with inhalers and treatment for COPD exacerbation. Resume p.o. diuretics. Add metoprolol for p.o. route, blood pressure optimization, and to maintain adequate rate control strategy. Pascual Vasques MD [facility]/MODL /[id number]
[2019-12-08] MEDS: HYDROCODONE/APAP 10MG-325MG TAB PO PRN (21:09)
[2019-12-08] MEDS: AZITHROMYCIN 500MG/NS 250 ML 250 ML IV SCH (21:57)
[2019-12-08] MEDS: CEFTRIAXONE SOD 1 GM/NS 50 ML 50 ML IV SCH (21:57)
[2019-12-09] VITALS (21 sets, daily range): BP systolic 115–148; BP diastolic 54–94
[2019-12-09] MEDS: ALBUTEROL/IPRATROPIUM 3 ML NEB NEB SCH ×4 (01:50→20:00)
[2019-12-09] MEDS: METHYLPREDNISOLONE SOD SUCC 125 MG/2ML VIAL IV SCH ×2 (03:00→18:01)
[2019-12-09 05:25] LABS: BASOPHILS % 0.1 % (0.0-1.0); EOSINOPHILS % 0.1 % (0.0-6.0); HEMATOCRIT 32.9 % (34.2-44.1); HEMOGLOBIN 9.7 g/dL (12.0-16.0); LYMPHOCYTES # (AUTO) 0.6 (1.0-3.2); LYMPHOCYTES % 6.1 % (18.0-39.1); MEAN CORPUSCULAR HEMOGLOBIN 27.9 pg (28-32); MEAN CORPUSCULAR HGB CONC 29.5 g/dL (31-35); MEAN CORPUSCULAR VOLUME 94.5 fL (81-99); MONOCYTES # (AUTO) 0.4 (0.2-0.8); MONOCYTES % 3.8 % (4.4-11.3); NEUTROPHILS # (AUTO) 9.1 (2.1-6.9); NEUTROPHILS % 89.5 % (38.7-80.0); PLATELET COUNT 133 x10e3/uL (140-360); RED BLOOD COUNT 3.48 x10e6/uL (3.6-5.1); RED CELL DISTRIBUTION WIDTH 13.4 % (11.7-14.4)
[2019-12-09 05:53] LABS: ALBUMIN/GLOBULIN RATIO 0.9 (0.8-2.0); ANION GAP 14.8 mmol/L (8-16); CALCIUM 8.9 mg/dL (8.4-10.2); CREATININE, SERUM 0.97 mg/dL (0.57-1.11); POTASSIUM 3.8 mmol/L (3.5-5.1)
[2019-12-09 08:17] LABS: ANISOCYTOSIS SLIGHT; LYMPHOCYTES % (MANUAL) 9 % (19-48); MONOCYTES % (MANUAL) 1 % (3.4-9.0); NEUTROPHILS % (MANUAL) 89 % (40-74); PLATELET ESTIMATE SLIGHTLY DECREASED; PLATELET MORPHOLOGY COMMENT NORMAL; RBC MORPHOLOGY COMMENT ABNORMAL
[2019-12-09] MEDS ORDERED: PROTONIX20 MG PO (09:27)
[2019-12-09] MEDS ORDERED: MONTELUKAST SOD10 MG PO (09:27)
[2019-12-09] MEDS ORDERED: TRAZODONE HCL50 MG PO (09:27)
[2019-12-09] MEDS ORDERED: [UNRECOGNIZED DRUG - OTHER] (09:27)
[2019-12-09] MEDS ORDERED: ELIQUIS5 MG PO (09:27)
[2019-12-09] MEDS ORDERED: FUROSEMIDE40 MG PO ×2 (09:27)
[2019-12-09] MEDS ORDERED: INCRUSE ELLI62.5 MCG IH (09:32)
[2019-12-09] MEDS ORDERED: PROAIR HFA INH8.5 GM IH (09:32)
[2019-12-09] MEDS: FAMOTIDINE 20 MG/2 ML VIAL IV SCH ×2 (09:52→18:01)
[2019-12-09] MEDS: METOPROLOL SUCCINATE 25 MG TAB XL PO SCH (09:53)
[2019-12-09] MEDS: LOSARTAN POTASSIUM 100 MG TAB PO SCH (09:53)
[2019-12-09] MEDS: APIXABAN 5 MG TABLET PO SCH ×2 (09:53→18:01)
--- NOTE | 2019-12-09 15:09 | Progress Note ---
DATE: SUBJECTIVE: The patient was extubated. She still has some dyspnea with exertion. She is on 4 L. PHYSICAL EXAMINATION: VITAL SIGNS: The blood pressure is 145/66, saturation is 98%. HEENT: No facial swelling or erythema. CARDIAC: Regular rate and rhythm with normal S1, S2. LUNGS: Auscultation of lungs shows decreased breath sounds at the bases. There is no wheezing. ABDOMEN: Soft, nontender. There is no rebound or guarding. EXTREMITIES: No leg edema or calf tenderness. IMPRESSION: 1. Acute on chronic respiratory failure. 2. Chronic obstructive pulmonary disease with acute exacerbation. 3. Acute on chronic diastolic heart failure. 4. Paroxysmal atrial fibrillation. 5. Thrombocytopenia. PLAN: 1. Continue steroids. 2. Continue bronchodilators. 3. Continue oxygen. 4. Physical therapy. Mario Escobar MD [facility]/MODL /[id number]
--- NOTE | 2019-12-09 19:57 | NUR ---
Spoke to Dr. Claritza Escobra about downgrade orders, ok with him to send to M/S w/ Tele. Called Dr. Hylton and spoke to Dwayne Babcock. she said it would be ok to go ahead and transfer patient to floor w/ tele. Order in process.
--- NOTE | 2019-12-09 20:19 | NUR ---
Report called to Alejandra BROWER.
--- NOTE | 2019-12-09 20:52 | NUR ---
Patient arrived from ICU in stable condition, no s/s of distress at this time. 3L O2 NC in place, Payne draining to gravity. Bed locked and in low position, side rails up x3, alarm on, call light placed within reach. Patient instructed to call for assistance if needed, verbalized understanding. All safety measures in place. Will continue to monitor.
[2019-12-09] MEDS ORDERED: SODIUM CHLORIDE 0.9% 250ML 250 ML ONE (21:05)
[2019-12-09] MEDS: CEFTRIAXONE SOD 1 GM/NS 50 ML 50 ML IV SCH (21:09)
[2019-12-09] MEDS: AZITHROMYCIN 500MG/NS 250 ML 250 ML IV SCH (21:50)
[2019-12-09] MEDS: HYDROCODONE/APAP 10MG-325MG TAB PO PRN (21:59)
[2019-12-10] VITALS (7 sets, daily range): BP systolic 107–123; BP diastolic 53–74
[2019-12-10] MEDS: METHYLPREDNISOLONE SOD SUCC 125 MG/2ML VIAL IV SCH (02:55)
--- NOTE | 2019-12-10 03:46 | NUR ---
Notified by telemetry that patient was running atrial flutter/afib in the 140s. Patient resting quietly in bed, respirations even and unlabored, no s/s of distress at this time. BP 122/61, HR 65. Telemetry box showing SR with PVCs. Will continue to monitor.
[2019-12-10 05:32] LABS: BASOPHILS % 0.1 % (0.0-1.0); HEMATOCRIT 33.8 % (34.2-44.1); HEMOGLOBIN 9.8 g/dL (12.0-16.0); LYMPHOCYTES # (AUTO) 0.5 (1.0-3.2); LYMPHOCYTES % 6.2 % (18.0-39.1); MEAN CORPUSCULAR HEMOGLOBIN 27.8 pg (28-32); MONOCYTES # (AUTO) 0.2 (0.2-0.8); NEUTROPHILS % 91.3 % (38.7-80.0); PLATELET COUNT 150 x10e3/uL (140-360); RED BLOOD COUNT 3.52 x10e6/uL (3.6-5.1); RED CELL DISTRIBUTION WIDTH 13.2 % (11.7-14.4)
[2019-12-10 05:43] LABS: ALANINE AMINOTRANSFERASE 21 IU/L (0-55); ALBUMIN 2.9 g/dL (3.5-5.0); ALBUMIN/GLOBULIN RATIO 0.9 (0.8-2.0); ALKALINE PHOSPHATASE 72 IU/L (40-150); ANION GAP 10.5 mmol/L (8-16); BLOOD UREA NITROGEN 22 mg/dL (7-26); BUN/CREATININE RATIO 26 (6-25); CALCIUM 8.6 mg/dL (8.4-10.2); CARBON DIOXIDE 40 mmol/L (22-29); CHLORIDE 96 mmol/L (98-107); CREATININE, SERUM 0.85 mg/dL (0.57-1.11); EST GLOMERULAR FILTRATION RATE > 60 ML/MIN (60-); GLUCOSE 128 mg/dL (74-118); POTASSIUM 4.5 mmol/L (3.5-5.1); SODIUM 142 mmol/L (136-145)
[2019-12-10] MEDS: ALBUTEROL/IPRATROPIUM 3 ML NEB NEB SCH ×3 (06:35→19:42)
--- NOTE | 2019-12-10 06:52 | NUR ---
Bedside report given to day nurse. Patient awake and resting in bed, no s/s of distress at this time. All safety measures in place.
[2019-12-10] MEDS: FAMOTIDINE 20 MG/2 ML VIAL IV SCH ×2 (09:05→17:18)
[2019-12-10] MEDS: METOPROLOL SUCCINATE 25 MG TAB XL PO SCH (09:05)
[2019-12-10] MEDS: LOSARTAN POTASSIUM 100 MG TAB PO SCH (09:05)
[2019-12-10] MEDS: APIXABAN 5 MG TABLET PO SCH ×2 (09:05→17:18)
[2019-12-10 09:32] LABS: HYPOCHROMASIA SLIGHT; LYMPHOCYTES % (MANUAL) 7 % (19-48); MONOCYTES % (MANUAL) 1 % (3.4-9.0); NEUTROPHILS % (MANUAL) 92 % (40-74)
[2019-12-10] MEDS ORDERED: ONDANSETRON HCL 4 MG ORAL DISINTEGRATING TAB PO PRN (12:00)
--- NOTE | 2019-12-10 12:17 | Progress Note ---
DATE: SUBJECTIVE: The patient was transferred out of the intensive care unit. The patient feels better. She has no fever. She has minimal cough. She did ambulate. PHYSICAL EXAMINATION: VITAL SIGNS: The blood pressure is 112/60 and saturation is 99% on 4 L. The pulse is 63. HEENT: Shows no facial swelling or erythema. CARDIAC: Reveals regular rate and rhythm with normal S1 and S2. LUNGS: Auscultation of lungs reveals decreased breath sounds at the bases. There is no wheezing. ABDOMEN: Soft and nontender. There is no rebound or guarding. EXTREMITIES: Shows no leg edema or calf tenderness. LABORATORY DATA: White blood cell count is 7.6 and hemoglobin is 9.8. The platelet count is 150. The BUN to creatinine ratio is 22 to 0.85. Other electrolytes within normal limits. The albumin is 2.9. RADIOGRAPHIC DATA: Chest x-ray shows no active disease. IMPRESSION: 1. Zwsod-ys-iumxyqs respiratory failure. 2. Chronic obstructive pulmonary disease. 3. Fbjrb-fi-wuauogv diastolic heart failure. 4. Paroxysmal atrial fibrillation. 5. Thrombocytopenia. PLAN: 1. Taper steroids. 2. Out of bed as tolerated. 3. Wean oxygen. 4. Continue current cardiac regimen. Mario Escobar MD [facility]/PAM /[id number]
[2019-12-10] MEDS: METHYLPREDNISOLONE SOD SUCC 40 MG/ML VIAL 1ML IV SCH (16:16)
--- NOTE | 2019-12-10 17:49 | Progress Note ---
DATE: 12/10/2019 Cardiology Progress Note SUBJECTIVE: Trinidad denies any chest pain. Her shortness of breath continues to improve. She has no other complaints. OBJECTIVE: VITAL SIGNS: Temperature 99.2, heart rate 67, blood pressure 107/74, respiratory rate 20, O2 saturation 98%. GENERAL: No acute distress. Alert. NECK: No JVD. CHEST: With scattered rhonchi. CARDIOVASCULAR: Regular rate and rhythm. Normal S1 and S2. ABDOMEN: Soft. Bowel sounds positive. EXTREMITIES: No edema. CARDIOVASCULAR MEDICATIONS: Reviewed. Metoprolol succinate 25 mg daily, losartan 100 mg daily, Eliquis 4 mg b.i.d. STUDIES: Reviewed. Creatinine 0.88. White blood cell 7.6, hemoglobin 9.8, platelets 150. PTT 31.9. AST 23, ALT 21, alkaline phosphatase 72, total bilirubin 0.3. ASSESSMENT AND PLAN: 1. A 64-year-old woman presents for acute respiratory failure in the setting of chronic obstructive pulmonary disease exacerbation, acute paroxysmal atrial fibrillation, hypertension, diastolic heart failure, and anemia. We recommend from our standpoint on exam today seems euvolemic. Continue surveillance and low-sodium diet at this point. 2. Continue rate control strategy with metoprolol and anticoagulation with Eliquis for thromboembolic risk prevention. Continue antihypertensive therapy with losartan and beta nuvia. Monitor H and H. Thank you for the opportunity to participate in the care of this patient. MD FRANKLIN Esparza/PAM /[id number]
--- NOTE | 2019-12-10 19:22 | NUR ---
Patient received lying in bed. AAO x 3. Patient had no complaints of pain. Respirations even and non-labored. Payne catheter draining light brenda urine . Safety measures in place. Patient instructed to call for assistance when needed. Call light within reach.
[2019-12-10] MEDS: CEFTRIAXONE SOD 1 GM/NS 50 ML 50 ML IV SCH (20:55)
[2019-12-10] MEDS: HYDROCODONE/APAP 10MG-325MG TAB PO PRN (21:34)
[2019-12-10] MEDS: AZITHROMYCIN 500MG/NS 250 ML 250 ML IV SCH (21:42)
[2019-12-11] MEDS: ALBUTEROL/IPRATROPIUM 3 ML NEB NEB SCH ×3 (00:48→13:05)
[2019-12-11 01:14] VITALS: BP 120/59
[2019-12-11] MEDS: METHYLPREDNISOLONE SOD SUCC 40 MG/ML VIAL 1ML IV SCH (02:50)
[2019-12-11 05:17] VITALS: BP 131/46
[2019-12-11 05:41] LABS: BASOPHILS % 0.1 % (0.0-1.0); HEMATOCRIT 34.2 % (34.2-44.1); HEMOGLOBIN 9.9 g/dL (12.0-16.0); LYMPHOCYTES # (AUTO) 0.6 (1.0-3.2); LYMPHOCYTES % 7.4 % (18.0-39.1); MEAN CORPUSCULAR HEMOGLOBIN 28.1 pg (28-32); MEAN CORPUSCULAR HGB CONC 28.9 g/dL (31-35); MEAN CORPUSCULAR VOLUME 97.2 fL (81-99); MONOCYTES # (AUTO) 0.3 (0.2-0.8); MONOCYTES % 3.4 % (4.4-11.3); NEUTROPHILS # (AUTO) 7.3 (2.1-6.9); NEUTROPHILS % 88.7 % (38.7-80.0); PLATELET COUNT 147 x10e3/uL (140-360); RED BLOOD COUNT 3.52 x10e6/uL (3.6-5.1); RED CELL DISTRIBUTION WIDTH 13.1 % (11.7-14.4)
[2019-12-11 06:07] LABS: ALANINE AMINOTRANSFERASE 56 IU/L (0-55); ALKALINE PHOSPHATASE 68 IU/L (40-150); ANION GAP 12.7 mmol/L (8-16); BLOOD UREA NITROGEN 28 mg/dL (7-26); BUN/CREATININE RATIO 34 (6-25); CALCIUM 8.6 mg/dL (8.4-10.2); CARBON DIOXIDE 36 mmol/L (22-29); CHLORIDE 96 mmol/L (98-107); CREATININE, SERUM 0.83 mg/dL (0.57-1.11); EST GLOMERULAR FILTRATION RATE > 60 ML/MIN (60-); GLUCOSE 118 mg/dL (74-118); POTASSIUM 4.7 mmol/L (3.5-5.1); SODIUM 140 mmol/L (136-145)
--- NOTE | 2019-12-11 06:55 | NUR ---
Walking rounds done. Patient resting comfortably. Shift report given to oncoming nurse regarding patient status.
--- NOTE | 2019-12-11 07:10 | NUR ---
RCD PT AT BED PT IS ALERT AND ORIENTED PT RESTING ON BED IV PATENT BY SALINE FLUSH BED LOW AND LOCKED OLIVARES DRAINING BY GRAVITY GETTING O2 4L BY NC CALL LIGHT IN REACH
--- NOTE | 2019-12-11 07:20 | NUR ---
ac to [employer] pts hr 150 and running svt paged and notified dr stringer got new orders
[2019-12-11] MEDS ORDERED: ADENOSINE 6 MG/2 ML VIAL INJ SCH (07:30)
--- NOTE | 2019-12-11 07:37 | NUR ---
AGAIN PAGED AND NOTIFIED DR COLVIN THE HR 155 AND BP 109/74 MM/HG GOT NEW ORDERS
--- NOTE | 2019-12-11 07:50 | NUR ---
NOTIFIED THE CONDITION TO THE CORK MIXER SHE CAME TO SEE THE PT
[2019-12-11 07:52] VITALS: BP 121/72
--- NOTE | 2019-12-11 07:55 | NUR ---
BP 103/83 AND HR 132 /MT
--- NOTE | 2019-12-11 08:18 | NUR ---
GAVE LIST OF FACILITIES IN NETWORK, SIGNED CHOICE FOR [facility], FILED IN CHART.
[2019-12-11 08:34] VITALS: BP 121/72
[2019-12-11] MEDS: FAMOTIDINE 20 MG/2 ML VIAL IV SCH (09:00)
[2019-12-11] MEDS: APIXABAN 5 MG TABLET PO SCH ×2 (09:00→16:05)
[2019-12-11] MEDS: METOPROLOL SUCCINATE 25 MG TAB XL PO SCH (09:00)
[2019-12-11] MEDS: LOSARTAN POTASSIUM 100 MG TAB PO SCH (09:00)
[2019-12-11 11:39] VITALS: BP 122/72
--- NOTE | 2019-12-11 11:59 | Progress Note ---
DATE: 12/11/2019 Cardiology Progress Note SUBJECTIVE: Palpitations and mild worsening shortness of breath today, noted to have atrial fibrillation with episodes of rapid ventricular response. OBJECTIVE: VITAL SIGNS: Temperature 97.9, heart rate of 124, blood pressure 121/71, respiratory rate 21, O2 saturation 97% on nasal cannula. GENERAL: In no acute distress. NECK: No JVD. CHEST: With scattered rhonchi. CARDIOVASCULAR: Tachycardic, irregularly irregular rate and rhythm. ABDOMEN: Soft. Bowel sounds positive. EXTREMITIES: No edema. CARDIOVASCULAR MEDICATIONS: Reviewed. Metoprolol IV p.r.n., losartan 100 mg daily, Apixaban 5 mg b.i.d. metoprolol succinate 25 mg daily. STUDIES: Reviewed. Creatinine 0.8. White blood cells 8.2, hemoglobin 9.9, platelets are 147. ASSESSMENT: A 64-year-old woman with COPD and acute respiratory failure, hypercarbic in the setting of chronic obstructive pulmonary disease exacerbation with acute on chronic diastolic heart failure and atrial fibrillation with episode of rapid ventricular response, hypertension. RECOMMENDATIONS: 1. Decrease losartan to 25 mg daily and up-titrate metoprolol to 50 mg b.i.d. The patient is status post adenosine IV 6 mg x1, initially thought to have SVT, now more clearly atrial fibrillation and status post metoprolol tartrate 5 mg IV total three doses already administered. 2. Continue Eliquis. MD FRANKLIN Esparza/PAM /[id number]
--- NOTE | 2019-12-11 13:21 | NUR ---
DC OLIVARES BY ORDER 800 ML URINE IN THE BAG ,AND BED SIDE COMMODE GIVEN
--- NOTE | 2019-12-11 14:24 | NUR ---
PRODUCT DESIGN ENGINEER TALKED TO JET PT APPROVED BY [facility] ,JET GAVE THE DISCHARGE ORDER
--- NOTE | 2019-12-11 14:27 | NUR ---
ASSISTED FACILITY DISCHARGE INFORMATION PATIENT HAS BEEN ACCEPTED TO: NAME: [facility] ADDRESS: [id number] ACCEPTING [employer] SEWER: MARINO VAZQUEZ ACCEPTING MD: ERIKA ROOM: 303 NURSE CALL REPORT TO: [phone] IMM SIGNED AND OBTAINED (if applicable): IMM THE FOLLOWING DOCUMENTS MUST ACCOMPANY PATIENT FOR TRANSFER: COPIED CHART: PACKET
--- NOTE | 2019-12-11 15:40 | NUR ---
REPORT GIVEN TO TESSA BONDS
--- NOTE | 2019-12-11 15:45 | NUR ---
AC TO DR MCMAHON PT NEED TO STAY ONE MORE NIGHT HERE BECAUSE OF SVT THIS MORNING PAGED AND NOTIFIED JET SHE TALKED TO DR MCMAHON HE SAID OK TO DISCHARGE TODAY
[2019-12-11 15:51] VITALS: BP 143/64
--- NOTE | 2019-12-11 15:54 | Progress Note ---
DATE: SUBJECTIVE: The patient had some rapid atrial fibrillation early this morning and required adenosine. She was subsequently seen by Cardiology and metoprolol was increased. She is being continued on Eliquis. She still has some dyspnea on exertion. She is using oxygen. PHYSICAL EXAMINATION: VITAL SIGNS: The patient is afebrile. The blood pressure is 122/72 and the saturation is 96%. She is on 4 L. Her respiratory rate is 16. Her pulse is 85. HEENT: Shows no facial swelling or erythema. CARDIAC: Reveals regular rate and rhythm with normal S1 and S2. LUNGS: Auscultation of lungs reveals clear breath sounds bilaterally. There is no wheezing. ABDOMEN: Soft and nontender. There is no rebound or guarding. EXTREMITIES: Shows no leg edema or calf tenderness. There is no cyanosis or clubbing. SKIN: Shows no rashes. IMPRESSION: 1. Xgatl-vk-mivbioo respiratory failure. 2. Chronic obstructive pulmonary disease with acute exacerbation. 3. Atrial fibrillation with rapid ventricular response. 4. Dmwkp-ea-nvorbsp diastolic heart failure. 5. Thrombocytopenia. PLAN: 1. Continue current cardiac regimen. 2. Continue steroids. 3. Oxygen. 4. Bronchodilators. 5. Physical therapy. Mario Escobar MD [facility] /[id number]
--- NOTE | 2019-12-11 15:55 | NUR ---
PT VOIDED AFTER OLIVARES
[2019-12-11] MEDS ORDERED: PREDNISONE 10 MG TAB PO SCH (17:00)
--- NOTE | 2019-12-11 17:59 | NUR ---
PATIENT DISCHARGED TO [facility] IN SAFE CONDITION
--- NOTE | 2019-12-12 07:32 | Discharge Summary ---
ADMISSION DIAGNOSES: 1. Ntbot-mo-vnbhmlb respiratory failure with hypercapnia. 2. Acute exacerbation of chronic obstructive pulmonary disease with respiratory failure. 3. Jcahz-vm-mferyuf diastolic congestive heart failure. 4. Obesity with a BMI of 32. DISCHARGE DIAGNOSES: 1. Ozzrh-ii-zqvkvdx respiratory failure with hypercapnia. 2. Acute exacerbation of chronic obstructive pulmonary disease with respiratory failure. 3. Hpshk-qp-hmbuckb diastolic congestive heart failure. 4. Obesity with a BMI of 32. HISTORY: COPD, chronic diastolic CHF, hypertension, atrial fibrillation. SURGICAL HISTORY: Cholecystectomy. FAMILY HISTORY: Noncontributory. SOCIAL HISTORY: Noncontributory. HOSPITAL COURSE: A 64-year-old female admitted to the ER with shortness of breath. Her SpO2 was 80%, so Pulmonology was consulted and the patient was intubated. History and HPI are from the chart. On admission, the patient's CO2 was 46. The patient was intubated and placed on propofol, started on Zithromax, Rocephin, IV steroids, and nebs. The patient's COVID was negative. The patient's echo showed 55% to 60% EF and her BNP was 213. Cardiology was consulted and the patient was given Lasix. Chest x-ray showed findings suggestive of pulmonary venous congestion and early interstitial edema, bilateral small pleural effusions, right greater than left. Blood cultures were negative. Urine culture was negative. Echo showed 55% to 60% EF. Per PT recommendation, the patient will benefit from going to a halfway facility, so the patient chose [facility]. She will continue 7 days total of Zithromax, Rocephin and she will taper her prednisone. The patient understands discharge instructions and agrees to plan. Vital signs stable. The patient is afebrile. Lakia Torrez NP [facility]/MODL /[id number]
[2019-12-12] MEDS ORDERED: LOSARTAN POTASSIUM 25 MG TAB PO SCH (09:00)
[2019-12-16] MEDS ORDERED: METOPROLOL SUCCINATE 50 MG TAB XL PO SCH (17:00)
== END 2019-12-11 17:59 | DRG 208 ==
LOC: ER 13:31 → ERHOLD 16:40 → ICU 12-07 01:20 → MED/SURG3 12-09 20:49
PROVIDERS: ADMIT Internal Medicine; ATTEND Internal Medicine
PROC: 5A1945Z Respiratory Ventilation, 24-96 Consecutive Hours (ICD-10-PCS; principal; 2019-12-06)
PROC: 0BH17EZ Insertion of Endotracheal Airway into Trachea, Via Natural or Artificial Opening (ICD-10-PCS; 2019-12-06)
PROC: 02HV33Z Insertion of Infusion Device into Superior Vena Cava, Percutaneous Approach (ICD-10-PCS; 2019-12-06)
PROC: B548ZZA Ultrasonography of Superior Vena Cava, Guidance (ICD-10-PCS; 2019-12-06)
DX: J44.1 Chronic obstructive pulmonary disease with (acute) exacerbation (principal); J96.22 Acute and chronic respiratory failure with hypercapnia; I50.33 Acute on chronic diastolic (congestive) heart failure; I11.0 Hypertensive heart disease with heart failure; G47.30 Sleep apnea, unspecified; Z88.5 Allergy status to narcotic agent; Z90.49 Acquired absence of other specified parts of digestive tract; E66.9 Obesity, unspecified; Z68.32 Body mass index [BMI] 32.0-32.9, adult; Z87.891 Personal history of nicotine dependence; D64.9 Anemia, unspecified; I48.0 Paroxysmal atrial fibrillation; D69.6 Thrombocytopenia, unspecified
CPT/HCPCS: 31500; 36415; 36569; 36600; 51700; 71045; 74018; 74470; 80053; 80061; 81001; 82550; 82553; 82805; 83605; 83735; 83880; 84484; 85025; 85610; 85730; 87040; 87086; 87635; 93005; 93306; 94002; 94003; 94640; 97139; 99285; J0153; J0330; J0456; J0696; J1650; J1940; J2920; J2930; J7030; J7050; J7512